=== PATIENT | female | born 1965 | race Caucasian/White ===

== ENCOUNTER 2024-04-28 13:35 | Emergency (ER) | payer OTHER, SELFPAY ==
[2024-04-28 13:36] VITALS: BP 149/88; PULSE 84; RESP 16; TEMP 36.7; O2SAT 97
--- NOTE | 2024-04-28 13:42 | ED.RN ---
ASKED DR MARRERO IF ANY ORDERS COULD BE DONE FROM TRIAGE AND NO ORDERS GIVEN
--- NOTE | 2024-04-28 15:09 | EX.ED.VIS.EY ---
HPI History of Present Illness Chief Complaint: Eye Problem [facility] Home Medications ?Medication ?Instructions ?Recorded ?Last Taken ?Type Ranitidine [Zantac] 150 mg PO BID 05/15/15 05/15/15 History albuterol sulfate 90 mcg/actuation 2 puff inhalation Q4H PRN PRN Sob 05/15/15 Unknown History aerosol inhaler (Ventolin HFA) &/Or Wheezing Allergy/AdvReac Type Severity Reaction Status Date / Time No Known Allergies Allergy Verified 04/28/24 13:39 Social History Smoking Status: Former smoker EXAM Physical Exam Const Vital Signs: 04/28/24 13:36 Temperature 98.1 F Temperature Source Temporal Pulse Rate 84 Respiratory Rate 16 Blood Pressure 149/88 H Blood Pressure Mean 108 Pulse Ox 97 Oxygen Delivery Method Room Air [employer] MDM Narrative Medical decision making narrative: HISTORY OF PRESENT ILLNESS: 58-year-old female presents concern for blood in her right eye. She notes this morning she woke up with tenderness along the right side of her forehead. She denies any recent trauma. She notes no sudden onset although she did wake up with the discomfort. Patient denies sudden onset or thunderclap headache, denies maximal intensity within 1 minute, vomiting, neck pain, stiffness, changes in vision, fever, history malignancy, syncope, or seizures associated with headache. REVIEW OF SYSTEMS: Pertinent positives: Headache, blood in her right eye Pertinent negatives: As per HPI PHYSICAL EXAM: Nursing triage notes reviewed, Vital signs reviewed Constitutional: please see mdm HENT: MMM Eyes: visual acuity 20/50 OS, 20/30 OD, Pupils equal round and reactive to light, Extraocular muscles intact, visual almanzar intact, there is a subconjunctival hemorrhage noted to the medial no pupil involvement. No eightball appearance. Neck: No stridor, no JVD, full neck ROM Lungs: Clear to auscultation, No wheezing or rales. No increased work of breathing, no conversational dyspnea, no accessory muscle use, no nasal flaring. No respiratory distress noted Heart: Regular rate and rhythm, No murmurs, No rubs and No gallops, 2+ distal pulses (radial, femoral, posterior tibial) in all extremities Abdomen: Soft, there is no tenderness, rigidity, rebound or guarding, no obvious peritoneal signs, no palpable pulsatile abdominal masses, no auscultated abdominal bruit : No CVAT Extremities: No edema Neuro: No new focal neurological deficits, cranial nerves II through XII intact, 5/5 strength in all present extremities. Intact sensation to light touch in all present extremities, 2+ reflexes bilateral patella tendons. Skin: No rash or lesions noted MEDICAL DECISION MAKING: Chief Complaint: Eye redness, headache External records reviewed: Reviewed prior imaging studies Factors affecting care: none Social determinants of health: none History obtained from others: none Consults: none MDM Narrative: Patient was initially hemodynamically stable, afebrile and nontoxic-appearing. Exam consistent with subconjunctival hemorrhage. History and physical exam not consistent with secondary headache. There is no temporal artery tenderness. I considered the following differential diagnosis: Primary headache (migraine, cluster, tension), secondary headache (ICH, subarachnoid hemorrhage, venous sinus thrombosis), temporal arteritis While I considered an intracranial emergency such as subarachnoid hemorrhage or cerebral venous sinus thrombosis the patient had no focal neurologic deficits or red flag features to suggest these etiologies. Did offer CT scan of the screening to rule out any other etiology such as mass. Patient was alert and orient x 3 and had capacity to make her medicines agree that she did not require advanced imaging at this time given her reassuring exam and benign history. She was treated with Tylenol, ibuprofen and Reglan. The patient and/or family, caregivers express understanding. The patient and/or family, caregivers agrees with the plan. Shared decision making: I will have a discussion with the patient and or visitors regarding risk/benefits of further testing or admission. They will be made aware of of the risk/benefits inherent in this decision they will be given the opportunity to voice understanding. Total critical care time today provided was at least 0 [] minutes. This excludes separately billable procedures. Critical care time (if documented) is secondary to the patient having high probability of clinically significant/life threatening deterioration in the patient's condition which required my urgent intervention. Impression: 1. Acute headache 2. Subconjunctival hemorrhage Dispo: Discharge home This note was generated with [employer] dictation software. It may contain incorrect words, spelling, and punctuation that were not noted in review of the chart prior to signing. Discharge Plan Triage Chief Complaint: Eye Problem ED Provider: Augustine Barreto Dx/Rx/DC Orders Prescriptions: No Action albuterol sulfate [Ventolin HFA] 1 INHALER inhaler 2 puff inhalation Q4H PRN PRN (Reason: Sob &/Or Wheezing) Patient Comments: shortness of breath/wheezing Ranitidine [Zantac] 150 MG tablet 150 mg PO BID Patient Comments: GERD Primary Care Provider: Terrence Hall Referrals: Terrence Hall DO [Primary Care Provider] - Print Language: Tajik
[2024-04-28] MEDS: Ibuprofen 200 MG Tablet 400 MG PO (15:54)
[2024-04-28] MEDS: Acetaminophen 325 MG Tablet 650 MG PO (15:54)
[2024-04-28] MEDS: Metoclopramide 5 MG TABLET PO (15:54)
== END 2024-04-28 16:52 | disposition home or self-care (01) ==
LOC: ED 16:03
PROVIDERS: Emergency Provider Emergency Medicine; PCP Student in an Organized Health Care Education/Training Program; Referring Provider Emergency Medicine; Visit Provider Emergency Medicine
DX: H11.31 Conjunctival hemorrhage, right eye (principal); Z87.891 Personal history of nicotine dependence
CPT/HCPCS: 99282